=== PATIENT | female | born 1990 | race Caucasian/White ===

== ENCOUNTER 2016-07-16 23:59 | Emergency (ER) | payer SELFPAY ==
--- NOTE | ~2016-07-16 | CR72 ---
[facility] A Service of [facility] & [facility] RADIOLOGY TEXT RESULTS PATIENT: HAYDEE MAK LOCATION: [facility] : [birth year] UNIT #: [id number] AGE: [address]: Elian Hanson DO SEX: F ORDER DR: [id number] [facility] [address] [place], [place] [address] [id number] E MR#: [id number] Acc #: [id number] NAME: HAYDEE MAK : 1990 SEX: F STUDY DATE/TIME: 07/17/2016 0:49 UNIT: [facility] ROOM: STUDY DESCRIPTION: CR Chest Single View Portable Attending Physician: Elian Hanson D.O. Ordering Physician: Elian Hanson D.O. Primary Care Physician: Primary Care Physician No MEDICAL IMAGING REPORT This report is preliminary unless electronic signature is present EXAM AP portable chest, 07/17/2016 at 00:49 HISTORY Shortness of breath and pain when breathing in the upper back for 3 days, worse over the past 20 minutes. Asthma. Smoking history. COMPARISON None FINDINGS A single AP portable view of the chest shows both lungs to be clear. The heart is normal in size. The mediastinal contour is normal. No significant bone abnormalities are seen. IMPRESSION Normal portable chest. Dictated by... Bethany Johnson M.D. THIS IS AN ELECTRONICALLY VERIFIED REPORT Bethany Johnson M.D. at 07/17/2016 10:25 PM Fred TD: 07/17/2016 12:03 JOB #: [id number] MEDICAL IMAGING REPORT COPY
--- NOTE | ~2016-07-16 | CT2 ---
[facility] A Service of [facility] RADIOLOGY TEXT RESULTS PATIENT: HAYDEE MAK LOCATION: [facility] : [birth year] UNIT #: [id number] AGE: [address]: Elian Hanson DO SEX: F ORDER DR: [id number] [facility] [address] [place], [place] [address] [id number] E MR#: [id number] Acc #: [id number] NAME: HAYDEE MAK : 1990 SEX: F STUDY DATE/TIME: 07/17/2016 3:44 UNIT: [facility] ROOM: STUDY DESCRIPTION: CT Abd and Pelv W Cont Attending Physician: Elian Hanson D.O. Ordering Physician: Elian Hanson D.O. Primary Care Physician: No Primary Care Physician MEDICAL IMAGING REPORT This report is preliminary unless electronic signature is present EXAM CT abdomen and pelvis with contrast. DATE 07/17/2016 HISTORY Left flank pain and pain in the upper back when breathing for 2 days with shortness of breath and cough this morning. Smoker. Asthma. COMPARISON AP portable chest, 07/17/2016 at 0049. PROCEDURE 5 mm axial images from the lung bases through the lesser trochanters after intravenous contrast administration. Enteric contrast was not administered. Sagittal and coronal reformatted images were obtained. This CT exam was performed with one or more of the following radiation dose reduction techniques: automatic exposure control, adjustment of mA and/or kV according to patient size, and iterative reconstruction. FINDINGS The gallbladder is contracted and filled with multiple calcified stones. There does appear to be a stone in the region of the gallbladder neck. No pericholecystic inflammatory changes are identified. No abnormal biliary dilation is evident. There is an ill-defined low-density lesion within the right hepatic lobe inferiorly measuring nearly 1.2 cm in the axial plane, nonspecific. The spleen, pancreas, adrenals, and kidneys are within normal limits. Lung bases are free of consolidation. Appendix is normal. No evidence of bowel obstruction. No free air or free fluid. [facility] A Service [facility] RADIOLOGY TEXT RESULTS PATIENT: HAYDEE MAK [id number] [birth year] UNIT #: [id number] AGE: [address]: Elian Hanson DO SEX: F ORDER DR: PELVIS FINDINGS: Urinary bladder, uterus, and rectum are normal. No pelvic adenopathy or free fluid. No urinary tract stone or hydronephrosis or perinephric inflammation is seen on this postcontrast study. No acute osseous abnormalities are identified. IMPRESSION 1. Cholelithiasis without convincing CT evidence of cholecystitis. There is, however, a gallstone embedded within the region of the gallbladder neck. If cholecystitis is of clinical concern, consider correlation to gallbladder ultrasound and/or HIDA scan. No abnormal biliary dilation. 2. No acute inflammatory changes elsewhere within the abdomen or pelvis to explain the patient's left flank pain. 3. Nonspecific 1.2 cm low-density lesion in the inferior right hepatic lobe. Consider correlation to CT or MRI abdomen without and with contrast hepatic imaging protocol on a nonemergent basis. 4. The appendix is normal. Dictated by... Bethany Johnson M.D. THIS IS AN ELECTRONICALLY VERIFIED REPORT Bethany Johnson M.D. at 07/17/2016 10:25 PM ALFONSO/dolores TD: 07/17/2016 12:33 JOB #: [id number] MEDICAL IMAGING REPORT COPY
--- NOTE | ~2016-07-16 | EKG ---
PATIENT: HAYDEE MAK UNIT #: [id number] Ventricular Rate: 116 BPM Atrial Rate: 116 BPM P-R Interval: 142 ms QRS Duration: 74 ms Q-T Interval: 320 ms QTC Calculation(Bezet): 444 ms P [place]: 56 degrees Calculated R [place]: 59 degrees Calculated T [place]: 32 degrees Diagnosis Line: Sinus tachycardia Diagnosis Line: Otherwise normal ECG Diagnosis Line: No previous ECGs available Diagnosis Line: Confirmed by RUDDY WOMACK MD ([id number]) on Diagnosis Line: 07/17/2016 11:27:04 AM INTERPRETING MD: VU HUITRON
[2016-07-17 01:09] LABS: BASOPHIL# 0.2 X10e3 (0-0.3); BASOPHIL% 1.4 % (0-2.5); EOSINOPHIL# 1.9 X10e3 (0-0.7); EOSINOPHIL% 12.6 % (0.0-7.0); HEMATOCRIT 39.5 % (35.0-45.0); HEMOGLOBIN 12.5 gm/dL (12.0-16.0); LYMPHOCYTE# 2.4 X10e3 (1.0-3.5); LYMPHOCYTE% 16.3 % (17.0-45.0); MEAN CELL VOLUME 72.7 FL (83-96); MEAN CORPUSCULAR HGB CONC 31.6 g/dL (30-36); MEAN PLATELET VOLUME 7.7 FL (6.5-11.5); MONOCYTE# 0.7 X10e3 (0-1.0); MONOCYTE% 4.6 % (3.0-12.0); NEUTROPHIL# 9.7 X10e3 (1.5-7.1); NEUTROPHIL% 65.1 % (40-75); PLATELET COUNT 504 X10e3 (140-420); RED BLOOD COUNT 5.42 X10e (3.90-5.30); RED CELL DISTRIBUTION WIDTH 17.7 % (11.0-15.5); WHITE BLOOD COUNT 14.9 X10e3 (4.0-10.5)
[2016-07-17 01:10] LABS: URINE SOURCE CLEAN CATCH
[2016-07-17 01:13] LABS: DIFF IND NO
[2016-07-17 01:16] LABS: URINE BILIRUBIN NEG (NEG); URINE BLOOD NEG (NEG); URINE GLUCOSE NORM (NORM); URINE KETONE NEG (NEG); URINE LEUKOCYTE ESTERASE NEG (NEG); URINE NITRATE NEG (NEG); URINE PROTEIN NEG (NEG); URINE UROBILINOGEN NORM (NORM)
[2016-07-17 01:21] LABS: POC - CKMB 2.2 ng/mL (0.0-7.9); POC - TROPONIN <0.05 ng/mL (<=0.05)
[2016-07-17 01:23] LABS: URINE APPEARANCE CLOUDY; URINE COLOR YELLOW
[2016-07-17 01:30] LABS: CULTURE INDICATED? NO
[2016-07-17 01:32] LABS: ALBUMIN SERUM 4.4 g/dL (3.5-5.0); ALKALINE PHOSPHATASE 72 U/L (32-92); ALT (SGPT) 22 U/L (10-40); AST (SGOT) 16 U/L (10-42); BILIRUBIN, DIRECT 0.1 mg/dL (0.0-0.2); BILIRUBIN,INDIRECT 0.8 mg/dL (0.0-0.9); BILIRUBIN,TOTAL 0.9 mg/dL (0.2-2.0); BLOOD UREA NITROGEN 9 mg/dL (9-23); CALCIUM SERUM 9.2 mg/dL (8.4-10.2); CARBON DIOXIDE 23 mmol/L (22-31); CHLORIDE 105 mmol/L (100-111); CREATININE SERUM 0.6 mg/dL (0.6-1.4); GLOM FILT RATE Estimated ABOVE60 mL/min (>60); GLUCOSE FASTING 101 mg/dL (70-110); LIPASE 20 U/L (22-51); POTASSIUM 3.9 mmol/L (3.5-5.1); SODIUM 136 mmol/L (135-145)
[2016-07-17 01:36] LABS: INR 1.2; PARTIAL THROMBOPLASTIN TIME 28.9 SECONDS (23.5-31.3); PROTHROMBIN TIME (PATIENT) 12.5 SECONDS (9.6-11.5)
[2016-07-17 03:18] LABS: POC - CKMB 2.6 ng/mL (0.0-7.9); POC - TROPONIN <0.05 ng/mL (<=0.05)
== END 2016-07-17 05:08 | disposition home or self-care (01) ==
LOC: CED 23:59
PROVIDERS: Emergency Medicine
DX: K80.20 Calculus of gallbladder without cholecystitis without obstruction (principal); J45.901 Unspecified asthma with (acute) exacerbation; F17.200 Nicotine dependence, unspecified, uncomplicated
CPT/HCPCS: 36415; 71010; 74177; 80048; 80076; 81003; 82553; 83690; 84484; 84703; 85025; 85379; 85610; 85730; 93005; 96361; 96374; 96375; 99284; J1885; J2930; Q9967

== ENCOUNTER 2016-08-10 23:24 | Emergency (ER) | payer SELFPAY ==
--- NOTE | ~2016-08-10 | EKG ---
PATIENT: HAYDEE MAK UNIT #: [id number] Ventricular Rate: 132 BPM Atrial Rate: 132 BPM P-R Interval: 142 ms QRS Duration: 72 ms Q-T Interval: 300 ms QTC Calculation(Bezet): 444 ms P [place]: 20 degrees Calculated R [place]: 51 degrees Calculated T [place]: 13 degrees Diagnosis Line: Sinus tachycardia Diagnosis Line: Otherwise normal ECG Diagnosis Line: When compared with ECG of 17-JUL-2016 00:27, Diagnosis Line: No significant change was found Diagnosis Line: Confirmed by CHELA AJ MD ([id number]) on 08/11/2016 Diagnosis Line: 4:43:41 PM INTERPRETING MD: JEAN MARIE HUITRON
--- NOTE | ~2016-08-10 | CR72 ---
[facility] A Service of [facility] & [facility] RADIOLOGY TEXT RESULTS PATIENT: HAYDEE MAK LOCATION: [facility] : [birth year] UNIT #: [id number] AGE: [address]: Renetta Torres APRN SEX: F ORDER DR: [id number] [facility] [address] [place], [place] [address] [id number] E MR#: [id number] Acc #: [id number] NAME: HAYDEE MAK : 1990 SEX: F STUDY DATE/TIME: 08/11/2016 00:48 UNIT: [facility] ROOM: STUDY DESCRIPTION: CR Chest Single View Portable Attending Physician: Renetta Torres A.P.R.N. Ordering Physician: Renetta Torres A.P.R.N. Primary Care Physician: No Primary Care Physician MEDICAL IMAGING REPORT This report is preliminary unless electronic signature is present EXAM Portable chest 08/10/2016 00:48 INDICATIONS Shortness of air. Symptoms today. History of asthma. COMPARISON 07/17/2016. FINDINGS A single AP portable view of the chest shows both lungs to be clear. The heart is normal in size. The mediastinal contour is normal. No significant bone abnormalities are seen. IMPRESSION Normal portable chest. Dictated by... Lang Butcher Jr., M.D. THIS IS AN ELECTRONICALLY VERIFIED REPORT Lang Butcher Jr., M.D. at 08/11/2016 5:24 AM LINDSEY/inna TD: 08/11/2016 05:07 JOB #: [id number] MEDICAL IMAGING REPORT Page 1 of 1 COPY
[2016-08-11 01:15] LABS: BASOPHIL# 0.1 X10e3 (0-0.3); BASOPHIL% 0.4 % (0-2.5); DIFF IND YES; EOSINOPHIL# 0.2 X10e3 (0-0.7); EOSINOPHIL% 0.9 % (0.0-7.0); HEMATOCRIT 36.2 % (35.0-45.0); HEMOGLOBIN 11.4 gm/dL (12.0-16.0); LYMPHOCYTE# 1.2 X10e3 (1.0-3.5); LYMPHOCYTE% 5.7 % (17.0-45.0); MEAN CELL VOLUME 73.5 FL (83-96); MEAN CORPUSCULAR HEMOGLOBIN 23.2 PG (28-34); MEAN CORPUSCULAR HGB CONC 31.6 g/dL (30-36); MEAN PLATELET VOLUME 7.4 FL (6.5-11.5); MONOCYTE# 0.5 X10e3 (0-1.0); MONOCYTE% 2.4 % (3.0-12.0); NEUTROPHIL# 18.3 X10e3 (1.5-7.1); NEUTROPHIL% 90.6 % (40-75); PLATELET COUNT 483 X10e3 (140-420); RED BLOOD COUNT 4.93 X10e (3.90-5.30); RED CELL DISTRIBUTION WIDTH 17.2 % (11.0-15.5); WHITE BLOOD COUNT 20.3 X10e3 (4.0-10.5)
[2016-08-11 01:24] LABS: INR 1.2; PARTIAL THROMBOPLASTIN TIME 28.9 SECONDS (23.5-31.3); PROTHROMBIN TIME (PATIENT) 12.3 SECONDS (9.6-11.5)
[2016-08-11 01:30] LABS: ANISOCYTOSIS SL; BUN/CREATININE RATIO 13.33; CALCIUM SERUM 9.1 mg/dL (8.4-10.2); CREATININE SERUM 0.6 mg/dL (0.6-1.4); GLOM FILT RATE Estimated 125.8 mL/min (>60); PLATELET ESTIMATE INCREASED (NORMAL); POTASSIUM 3.6 mmol/L (3.5-5.1)
[2016-08-11 01:31] LABS: MICROCYTOSIS MOD; OVALOCYTES PRESENT; STOMATOCYTE PRESENT
== END 2016-08-11 04:48 | disposition home or self-care (01) ==
LOC: CED 23:24
PROVIDERS: Nurse Practitioner
DX: J45.909 Unspecified asthma, uncomplicated (principal); R00.0 Tachycardia, unspecified; F17.200 Nicotine dependence, unspecified, uncomplicated
CPT/HCPCS: 36415; 71010; 80048; 85025; 85379; 85610; 85730; 93005; 94640; 96360; 96361; 99284